=== PATIENT | female | born 1950 | race African-American/Black ===

== ENCOUNTER 2017-03-22 09:11 | Day surgery (SDC) | payer MEDICARE, BC ==
[2017-03-22] MEDS ORDERED: LIDOCAINE 2% MDV (20MG/ML) 20ML VIAL IV ONE (15:45)
[2017-03-22] MEDS ORDERED: PROPOFOL 10 MG/ML VIAL IV ONE (15:45)
[2017-03-22] MEDS ORDERED: FENTANYL PF 100MCG/2ML VIAL IV ONE (15:45)
--- NOTE | 2017-03-24 12:30 | Operative Note ---
DATE OF SURGERY: 03/22/2017 OPERATION: ESOPHAGOGASTRODUODENOSCOPY with multiple biopsies. INDICATION: Recent episode of dyspepsia with recurring belching and pyrosis. She took a medication for a period of time and her symptoms improved. She presents for upper endoscopy at this time for further evaluation. ANESTHESIA: Intravenous sedation was administered by the department of anesthesiology and included Diprivan titrated to effect. PROCEDURE: Following informed consent from this alert individual, including a discussion of the risks and benefits of the procedure and an opportunity for the patient to ask questions, the patient was in the left lateral decubitus position. The Olympus [id number] video endoscope was inserted into the esophagus without resistance. The proximal esophagus had a normal appearance with normal folds and distensibility. The mid and distal esophagus likewise was free from changes. The squamocolumnar junction was smooth and well defined and approximated the diaphragmatic hiatus. The stomach was entered. The gastric fundus and pars media had a normal appearance with normal folds and distensibility. The antrum was evaluated circumferentially and demonstrated linear mild erythema predominantly along the greater curvature. The pylorus was patent. The duodenal bulb, sweep, and descending duodenum were examined in a serial fashion and found to be normal. The endoscope was then withdrawn back into the body of the stomach, where retroflexion accomplished following air insufflation failed to demonstrate any abnormalities. The endoscope was then straightened. Biopsies were taken from the antrum of the stomach and proximal stomach to assess for Helicobacter pylori and check histology. After biopsy, endoscope was then withdrawn back through a normal esophagus and removed from the patient. She tolerated the procedure well and was returned to the recovery area in stable condition. IMPRESSION: 1. Mild linear antral gastritis. 2. Otherwise unremarkable endoscopy. 3. Biopsies taken. RECOMMENDATION: Further recommendations will be forthcoming pending the results of pathology obtained today. Followup will be with Dr. Alexi Christian as well. As always, thank you for allowing me to participate in the care of your patient. CC: Dr. Anahi CACERES
--- NOTE | 2017-03-24 12:30 | Operative Note ---
DATE OF SURGERY: 03/22/2017 OPERATION: COLONOSCOPY to the cecum with cold biopsy forceps polypectomy. INDICATION: History of abnormal polyp. The patient returns at this time for surveillance. The last examination was 9 years ago. ANESTHESIA: Intravenous sedation was administered by the department of anesthesiology and included Diprivan titrated to effect. PROCEDURE: Following informed consent from this alert individual including a discussion of the risks and benefits of the procedure and an opportunity for the patient to ask questions, the patient was in the left lateral decubitus position. A digital rectal examination was performed. No abnormalities were noted. Following this, the Olympus [id number] video colonoscope was inserted into the rectum without resistance. The rectal mucosa had a normal appearance with normal folds and distensibility. The colonoscope was advanced up through the bowel to the level of the cecum without much difficulty. Throughout the bowel the mucosa appeared normal, the folds were normal, and the bowel was fairly well distensible. The cecum was defined by noting the appendiceal orifice and ileocecal valve. From the base of the cecum, the colonoscope was then withdrawn back through the bowel, reexamining the mucosa upon withdrawal. No abnormalities were detected until the rectum was reached. Within the proximal rectum, there was a diminutive 3 mm polyp noted which was removed with biopsy forceps. Retroflexion in the rectum demonstrated small internal hemorrhoids. The endoscope was straightened and withdrawn. The patient tolerated the procedure well and was returned to the recovery area in stable condition. IMPRESSION: 1. Diminutive proximal rectal polyp removed with biopsy forceps. 2. Small internal hemorrhoids. RECOMMENDATIONS: The patient was advised she should receive a copy of her pathology report at home in the next 2-3 weeks. Further recommendations will be forthcoming pending those results. Followup will also be with Dr. Alexi Christian. As always, thank you for allowing me to participate in the care of your patient. CC: Dr. Anahi CACERES
== END 2017-03-22 11:20 | disposition home or self-care (01) ==
LOC: HOP 09:11
PROVIDERS: ATTEND Internal Medicine Gastroenterology
DX: Z12.11 Encounter for screening for malignant neoplasm of colon (principal); D12.8 Benign neoplasm of rectum; K64.8 Other hemorrhoids; K29.70 Gastritis, unspecified, without bleeding
CPT/HCPCS: 88305; 45380; 00810; 43235; J3010